=== PATIENT | male | born 1955 | race Caucasian/White ===

== ENCOUNTER 2017-05-09 19:09 | Emergency (ER) | payer BC ==
[2017-05-09] MEDS ORDERED: Ondansetron 4 MG/2 ML SDV IV ONE (19:41)
[2017-05-09] MEDS ORDERED: Sodium Chloride 0.9% 1,000 ML IV ONE ×2 (19:41→20:55)
--- NOTE | 2017-05-09 19:57 | EDM.PDOC ---
ED HPI GENERAL MEDICAL PROBLEM - General Chief Complaint: Gastrointestinal Problem Stated Complaint: VOMITTING, VERY ILL [id number] Time Seen by Provider: 05/09/17 19:45 Source of Information: Reports: Patient, Family History Limitations: Reports: No Limitations - History of Present Illness INITIAL COMMENTS - FREE TEXT/NARRATIVE: This 61 yo male patient reports to the ED with 2 episodes of rectal bleeding with bowel movements, nausea/vomiting, generalized weakness and a fever. The patient reports his symptoms started yesterday after he had a hard bowel movement with some rectal bleeding following the movement. The patient reports his symptoms subsided over the night. Today, the patient reports he went to [place] and had been feeling pretty normal. While in his way back to [place], the patient started to feel ill at about [place]. The patient had a large bowel movement at [place] with a large amount of blood passing. While on the way from [place], the patient started to report feeling very weak, cold and nauseated. The patient reports he has been feeling nauseated and has vomited prior to coming to the ED. The patient was given Tylenol about 40 minutes prior to coming to the ED due to a fever. The patient reports he had 1 similar episode in the past where they believe he got an infection after rupturing a hemorrhoid. The patient reports he had a colonoscopy about 5 years ago with no noted abnormalities. Onset: Today Duration: Constant, Getting Worse Location: Reports: Generalized Quality: Reports: Ache, Dull Severity: Severe Improves with: Reports: None Worsens with: Reports: None Associated Symptoms: Reports: Fever/Chills, Nausea/Vomiting, Weakness, Other ( Rectal bleeding) Treatments GRADES 1 THROUGH 6 TEACHER: Reports: Acetaminophen Generalized Pain Score (Numeric/FACES): 4 - Related Data Allergies Allergy/AdvReac Type Severity Reaction Status Date / Time No Known Allergies Allergy Verified 05/09/17 19:19 Home Meds: Home Meds Aspirin 1 tab PO DAILY 05/09/17 [History] Insulin Glarg,Human.Rec.Analog [LantUS Solostar] 30 units SQ BID 05/09/17 [ History] Lisinopril 1 tab PO DAILY 05/09/17 [History] Loratadine [Claritin] 1 tab PO DAILY 05/09/17 [History] Omeprazole Magnesium [Prilosec Otc] 1 tab PO DAILY 05/09/17 [History] Past Medical History Cardiovascular History: Reports: Hypertension Respiratory History: Reports: Sleep Apnea Gastrointestinal History: Reports: GERD, Hemorrhoids Endocrine/Metabolic History: Reports: Diabetes, Type II - Past Surgical History GI Surgical History: Reports: Bariatric Procedure Other GI Surgeries/Procedures: 2013 Musculoskeletal Surgical History: Reports: Other (See Below) Other Musculoskeletal Surgeries/Procedures:: Neck surgery in 2013. (cervial fusion) Social & Family History - Tobacco Use Smoking Status *Q: Unknown Ever Smoked - Caffeine Use Caffeine Use: Reports: Coffee - Recreational Drug Use Recreational Drug Use: No ED ROS GENERAL - Review of Systems Review Of Systems: ROS reveals no pertinent complaints other than HPI. ED EXAM, GI/ABD - Physical Exam Exam: See Below Exam Limited By: No Limitations General Appearance: Alert, WD/WN, Moderate Distress, Obese Eyes: Bilateral: Normal Appearance, EOMI Ears: Normal External Exam, Normal Canal, Hearing Grossly Normal, Normal TMs Nose: Normal Inspection, Normal Mucosa, No Blood Throat/Mouth: Normal Inspection, Normal Lips, Normal Teeth, Normal Gums, Normal Oropharynx, Normal Voice, No Airway Compromise Head: Atraumatic, Normocephalic Neck: Normal Inspection, Supple, Non-Tender, Full Range of Motion Respiratory/Chest: No Respiratory Distress, Lungs Clear, Normal Breath Sounds, No Accessory Muscle Use, Chest Non-Tender Cardiovascular: Normal Peripheral Pulses, Regular Rate, Rhythm, No Edema, No Gallop, No JVD, No Murmur, No Rub GI/Abdominal Exam: Normal Bowel Sounds, Soft, No Organomegaly, No Distention, No Abnormal Bruit, No Mass, Tender (mild upper abdominal tenderness (reports palpation increased his nausea)) (Male) Exam: Deferred Back Exam: Normal Inspection, Full Range of Motion, NT Extremities: Normal Inspection, Normal Range of Motion, Non-Tender, Normal Capillary Refill, No Pedal Edema Neurological: Alert, Oriented, CN II-XII Intact, Normal Cognition, Normal Gait, Normal Reflexes, No Motor/Sensory Deficits Psychiatric: Normal Affect, Normal Mood Skin Exam: Dry, Intact, Normal Color, No Rash, Increased Warmth Lymphatic: No Adenopathy Course - Vital Signs Last Recorded V/S: Last Vital Signs Temp 39.7 C H 05/09/17 20:35 Pulse 128 H 05/09/17 19:27 Resp 24 H 05/09/17 19:27 BP 175/84 H 05/09/17 19:27 Pulse Ox 100 05/09/17 19:27 - Orders/Labs/Meds Orders: Active Orders 24 hr Category Date Time Status Chest 2V [CR] Urgent Exams 05/09/17 20:52 Ordered CULTURE BLOOD [BC] Stat Lab 05/09/17 19:25 Received CULTURE BLOOD [BC] Stat Lab 05/09/17 19:30 Received Piperacillin/Tazobactam [Zosyn] 3.375 gm Med 05/09/17 20:52 Ordered Sodium Chloride 0.9% [Normal Saline] 100 ml IV ONETIME Sodium Chloride 0.9% [Normal Saline] 1,000 ml Med 05/09/17 20:55 Ordered IV .BOLUS Vancomycin 1.5 gm Med 05/09/17 20:52 Ordered Sodium Chloride 0.9% [Normal Saline] 500 ml IV ONETIME Blood Culture x2 Reflex Set [OM.PC] Stat Oth 05/09/17 19:22 Ordered Medication Orders Piperacillin Sod/Tazobactam (Sod 3.375 gm/ Sodium Chloride) 100 mls @ 200 mls/ hr IV ONETIME ONE Stop: 05/09/17 21:21 Vancomycin HCl 1.5 gm/ Sodium (Chloride) 500 mls @ 334 mls/hr IV ONETIME ONE Stop: 05/09/17 22:21 Sodium Chloride (Normal Saline) 1,000 mls @ 999 mls/hr IV .BOLUS ONE Stop: 05/09/17 21:55 Last Admin: 05/09/17 20:58 Dose: 999 mls/hr Labs: Laboratory Tests 05/09/17 05/09/17 05/09/17 Range/Units 19:25 19:25 19:25 WBC 6.0 (5.0-10.0) 10^3/uL RBC 4.61 (4.6-6.2) 10^6/uL Hgb 13.2 L (14.0-18.0) g/dL Hct 39.9 L (40.0-54.0) % MCV 86.6 (80-100) fL MCH 28.6 (27.0-34.0) pg MCHC 33.1 (33.0-35.0) g/dL Plt Count 107 L (150-450) 10^3/uL Neut % (Auto) 87.8 H (42.2-75.2) % Lymph % (Auto) 7.5 L (20.5-50.1) % [place] % (Auto) 0.7 L (2-8) % Eos % (Auto) 3.8 H (1.0-3.0) % Baso % (Auto) 0.2 (0.0-1.0) % Sodium 138 (135-145) mmol/L Potassium 3.5 L (3.6-5.0) mmol/L Chloride 102 (101-111) mmol/L Carbon Dioxide 26.0 (21.0-31.0) mmol/L Anion Gap 13.5 BUN 22 H (7-18) mg/dL Creatinine 1.5 H (0.6-1.3) mg/dL Est Cr Clr Drug Dosing 60.89 mL/min Estimated GFR (MDRD) 48 BUN/Creatinine Ratio 14.66 Glucose 208 H (74-105) mg/dL Lactic Acid 3.2 H (0.5-2.2) mmol/L Calcium 8.9 (8.4-10.2) mg/dl Total Bilirubin 1.1 H (0.2-1.0) mg/dL AST 40 (10-42) IU/L ALT 30 (10-60) IU/L Alkaline Phosphatase 84 (42-121) IU/L Total Protein 7.7 (6.7-8.2) g/dl Albumin 3.9 (3.2-5.5) g/dl Globulin 3.8 Albumin/Globulin Ratio 1.03 Meds: Medications Generic Name Dose Route Start Last Admin Trade Name Freq PRN Reason Stop Dose Admin Piperacillin Sod/Tazobactam 100 mls @ 200 mls/hr 05/09/17 20:52 Sod 3.375 gm/ Sodium Chloride IV 05/09/17 21:21 ONETIME ONE Vancomycin HCl 1.5 gm/ Sodium 500 mls @ 334 mls/hr 05/09/17 20:52 Chloride IV 05/09/17 22:21 ONETIME ONE Sodium Chloride 1,000 mls @ 999 mls/hr 05/09/17 20:55 05/09/17 20:58 Normal Saline IV 05/09/17 21:55 999 mls/hr .BOLUS ONE Administration Discontinued Medications Generic Name Dose Route Start Last Admin Trade Name Freq PRN Reason Stop Dose Admin Sodium Chloride 1,000 mls @ 999 mls/hr 05/09/17 19:41 05/09/17 19:52 Normal Saline IV 05/09/17 20:41 999 mls/hr .BOLUS ONE Administration Ondansetron HCl 4 mg 05/09/17 19:41 05/09/17 19:52 Zofran IV 05/09/17 19:42 4 mg ONETIME ONE Administration Departure - Departure Time of Disposition: 20:58 Disposition: DC/Tfer to [facility] Condition: Serious Clinical Impression: Sepsis Qualifiers: Sepsis type: sepsis due to unspecified organism Qualified Code(s): A41.9 - Sepsis, unspecified organism GI bleed Qualifiers: GI bleed type/associated pathology: unspecified gastrointestinal hemorrhage type Qualified Code(s): K92.2 - Gastrointestinal hemorrhage, unspecified - Discharge Information Referrals: PCP,Not In Area [Primary Care Provider] - Forms: Interfacility Transfer EMTALA Care Plan Goals: Discussed the examination, history, treatments and lab results with Dr. Angel ([facility] Hospitalist). Dr. Angel accepted the patient for continued evaluation and further management. The patient will be transported by [facility]. - My Orders Last 24 Hours: My Active Orders 05/09/17 19:22 Blood Culture x2 Reflex Set [OM.PC] Stat 05/09/17 19:25 CULTURE BLOOD [BC] Stat 05/09/17 19:30 CULTURE BLOOD [BC] Stat 05/09/17 20:52 Chest 2V [CR] Urgent Piperacillin/Tazobactam [Zosyn] 3.375 gm Sodium Chloride 0.9% [Normal Saline] 100 ml IV ONETIME Vancomycin 1.5 gm Sodium Chloride 0.9% [Normal Saline] 500 ml IV ONETIME 05/09/17 20:55 Sodium Chloride 0.9% [Normal Saline] 1,000 ml IV .BOLUS - Assessment/Plan Last 24 Hours: My Active Orders 05/09/17 19:22 Blood Culture x2 Reflex Set [OM.PC] Stat 05/09/17 19:25 CULTURE BLOOD [BC] Stat 05/09/17 19:30 CULTURE BLOOD [BC] Stat 05/09/17 20:52 Chest 2V [CR] Urgent Piperacillin/Tazobactam [Zosyn] 3.375 gm Sodium Chloride 0.9% [Normal Saline] 100 ml IV ONETIME Vancomycin 1.5 gm Sodium Chloride 0.9% [Normal Saline] 500 ml IV ONETIME 05/09/17 20:55 Sodium Chloride 0.9% [Normal Saline] 1,000 ml IV .BOLUS
[2017-05-09] MEDS ORDERED: Vancomycin 1.5 GM in Sodium Chloride 0.9% 500 ML IV ONE (20:52)
[2017-05-09] MEDS ORDERED: Piperacillin/Tazobactam 3.375 GM in Sodium Chloride 0.9% 100 ML IV ONE (20:52)
== END 2017-05-09 21:29 ==
LOC: DL.ED 19:09
DX: A41.9 Sepsis, unspecified organism (principal); K92.2 Gastrointestinal hemorrhage, unspecified; I10 Essential (primary) hypertension; K21.9 Gastro-esophageal reflux disease without esophagitis; E11.9 Type 2 diabetes mellitus without complications; Z79.4 Long term (current) use of insulin; Z79.82 Long term (current) use of aspirin; Z79.899 Other long term (current) drug therapy
CPT/HCPCS: 36415; 71020; 80053; 82272; 83605; 85025; 87040; 87804; 96361; 96374; 96375; 99284; J2405; J2543; J3370; J7030; J7040; J7050; 87077; 87186